=== PATIENT | male | born 1935 | race Caucasian/White ===

== ENCOUNTER → 2016-10-12 | Outpatient (CLI) | payer OTHER ==
[2016-10-12 17:54] LABS: HEMOGLOBIN A1C 7.31 % (4.2-6.0); MEAN BLOOD GLUCOSE (CALC) 157.423 mg/dL
== END ==
LOC: MOB LAB 15:57
DX: E11.9 Type 2 diabetes mellitus without complications (principal); Z79.4 Long term (current) use of insulin
CPT/HCPCS: 36415; 83036

== ENCOUNTER → 2016-10-14 | Outpatient (CLI) | payer OTHER | LOC: LAB 10:06 | DX: A04.7 Enterocolitis due to Clostridium difficile (principal) | CPT/HCPCS: 87493 ==

== ENCOUNTER → 2016-11-08 | Outpatient (CLI) | payer OTHER | LOC: MMPC 09:00 | DX: R19.7 Diarrhea, unspecified (principal); R97.20 Elevated prostate specific antigen [PSA]; I25.10 Atherosclerotic heart disease of native coronary artery without angina pectoris; E11.9 Type 2 diabetes mellitus without complications; I10 Essential (primary) hypertension; H40.9 Unspecified glaucoma; E78.5 Hyperlipidemia, unspecified; K21.9 Gastro-esophageal reflux disease without esophagitis; N28.9 Disorder of kidney and ureter, unspecified; Z86.010 Personal history of colon polyps | CPT/HCPCS: 99213; G0463 ==

== ENCOUNTER → 2017-01-10 | Outpatient (CLI) | payer OTHER ==
[2017-01-10 16:35] LABS: BASOPHILS # (AUTO) 0.09 10*3/UL; BASOPHILS % (AUTO) 0.9 % (0-1); EOSINOPHILS # (AUTO) 0.42 10*3/UL; EOSINOPHILS % (AUTO) 4.4 % (0-8); HEMOGLOBIN 13.6 g/dL (14.0-18.0); LYMPHOCYTES # (AUTO) 2.07 10*3/uL; MEAN CORPUSCULAR HEMOGLOBIN 31.2 PG (27-31); MEAN CORPUSCULAR HGB CONC 33.2 g/dL (33-37); MEAN PLATELET VOLUME 11.1 FL (7.4-12.2); MONOCYTES # (AUTO) 1.05 10*3/UL (0.3-0.8); NEUTROPHILS # (AUTO) 5.85 10*3/UL; NEUTROPHILS % (AUTO) 61.6 % (50-80); RED BLOOD COUNT 4.36 10^6/uL (4.70-6.10)
[2017-01-10 16:48] LABS: PLATELET MORPHOLOGY COMMENT NORMAL MORPHOLOGY (NORM); RBC MORPHOLOGY COMMENT NORMAL MORPHOLOGY (NORM); WBC MORPHOLOGY COMMENT NORMAL MORPHOLOGY (NORM)
[2017-01-10 17:04] LABS: BLOOD UREA NITROGEN 30 mg/dL (7-22); BUN/CREATININE RATIO 18.75 (6-20); CALCIUM 9.1 mg/dL (8.7-10.7); CHOL/HDL RATIO 6.75 RATIO (0-4.0); HDL CHOLESTEROL 28 mg/dL (40-150); SERUM ALBUMIN 3.8 g/dL (3.5-4.8); SERUM CHOLESTEROL 189 mg/dL (120-200)
== END ==
LOC: MOB LAB 15:21
DX: E11.9 Type 2 diabetes mellitus without complications (principal); Z79.4 Long term (current) use of insulin; I10 Essential (primary) hypertension; E78.5 Hyperlipidemia, unspecified; K21.9 Gastro-esophageal reflux disease without esophagitis; N28.9 Disorder of kidney and ureter, unspecified
CPT/HCPCS: 36415; 80053; 80061; 83036; 85025

== ENCOUNTER → 2017-01-20 | Outpatient (CLI) | payer OTHER | LOC: MMPC 11:11 | DX: L02.821 Furuncle of head [any part, except face] (principal); H60.01 Abscess of right external ear; E11.9 Type 2 diabetes mellitus without complications; I10 Essential (primary) hypertension; H40.9 Unspecified glaucoma; E78.5 Hyperlipidemia, unspecified; N28.9 Disorder of kidney and ureter, unspecified; K63.5 Polyp of colon; K21.9 Gastro-esophageal reflux disease without esophagitis | CPT/HCPCS: 99213; G0463 ==

== ENCOUNTER → 2017-02-08 | Outpatient (CLI) | payer OTHER | LOC: MMPC 11:11 | DX: L02.221 Furuncle of abdominal wall (principal); E11.9 Type 2 diabetes mellitus without complications; I10 Essential (primary) hypertension; H40.9 Unspecified glaucoma; E78.5 Hyperlipidemia, unspecified; N28.9 Disorder of kidney and ureter, unspecified; Z86.010 Personal history of colon polyps; R97.20 Elevated prostate specific antigen [PSA]; K21.9 Gastro-esophageal reflux disease without esophagitis | CPT/HCPCS: 99213; G0463 ==

== ENCOUNTER → 2017-04-14 | Outpatient (CLI) | payer OTHER ==
[2017-04-14 13:09] LABS: BUN/CREATININE RATIO 15.71 (6-20); CALCIUM 9.4 mg/dL (8.7-10.7)
[2017-04-14 13:13] LABS: HEMOGLOBIN A1C 7.53 % (4.2-6.0)
[2017-04-14 13:26] LABS: VITAMIN D 25-HYDROXY 35.6 NG/ML (30-100)
== END ==
LOC: MOB LAB 11:29
DX: E11.9 Type 2 diabetes mellitus without complications (principal); Z79.4 Long term (current) use of insulin; N28.9 Disorder of kidney and ureter, unspecified; I10 Essential (primary) hypertension; E78.5 Hyperlipidemia, unspecified; E55.9 Vitamin D deficiency, unspecified; H40.9 Unspecified glaucoma; K21.9 Gastro-esophageal reflux disease without esophagitis; K63.5 Polyp of colon; M10.9 Gout, unspecified; Z12.5 Encounter for screening for malignant neoplasm of prostate
CPT/HCPCS: 36415; 80048; 82306; 83036; 84443; 99213; G0103; G0463